=== PATIENT | male | born 1975 | race Caucasian/White ===

== ENCOUNTER 2016-11-03 17:10 | Emergency (ER) | payer SELFPAY ==
[~2016-11-03] VITALS: Ht 188 cm; Wt 85.0 kg
[2016-11-03 17:11] VITALS: BP 126/84; PULSE 80; RESP 15; TEMP 98.4; O2SAT 98
[2016-11-03] MEDS ORDERED: CYMB60CA PO (18:43)
[2016-11-03] MEDS ORDERED: METO25TA6 PO (18:43)
[2016-11-03] MEDS ORDERED: DEPA250T2 PO (18:43)
[2016-11-03] MEDS ORDERED: TRAZ100T6 PO (18:43)
--- NOTE | 2016-11-03 18:57 | PD ---
HPI . left lower tooth pain x 3 days Chief Complaint: Oral / Dental Pain or Problem Time Seen by Provider: 18:39 Travel History International Travel<30 days: No Contact w/Intl Traveler<30days: No Traveled to known affect area: No History of Present Illness HPI 41-year-old male who's had dental problems as whole life here with complaints of left lower tooth pain for the past 3 days. Patient says that his left lower wisdom tooth has been bothering him. He denies any fever or chills. He has not been able to establish with the dentist because he does not have dental insurance yet. PFSH Past Medical History Atrial Fibrillation: Yes Depression: Yes GERD: Yes Medical other: Yes (klinefelter's syndrome) Psychiatric: Yes (PTSD) Past Surgical History Cholecystectomy: Yes (07/2014) Oral Surgery: Yes Social History Alcohol Use: No Tobacco Use: Yes (1 ppd) Substance Use: No Allergies-Medications (Allergen,Severity, Reaction): Coded Allergies: acetaminophen (Verified Allergy, Unknown, 11/03/16) codeine (Verified Allergy, Unknown, 11/03/16) Reported Meds & Prescriptions Reported Meds & Active Scripts Active Clindamycin (Clindamycin HCl) 300 Mg Cap 300 Mg PO TID Reported Trazodone (Trazodone HCl) 100 Mg Tablet 100 Mg PO HS Cymbalta DR (Duloxetine HCl) 60 Mg Capdr 60 Mg PO DAILY Depakote DR (Divalproex Sodium) 250 Mg Tabdr 250 Mg PO BID Metoprolol Succinate ER 24 HR (Metoprolol Succinate) 25 Mg Tab 25 Mg PO DAILY Review of Systems General / Constitutional: No: Fever Eyes: No: Visual changes HENT: Positive: Dental Difficulties, No: Headaches Cardiovascular: No: Chest Pain or Discomfort Respiratory: No: Shortness of Breath Gastrointestinal: No: Abdominal Pain Genitourinary: No: Dysuria Musculoskeletal: No: Pain Skin: No Rash Neurologic: No: Weakness Psychiatric: No: Depression Endocrine: No: Polydipsia Hematologic/Lymphatic: No: Easy Bruising Physical Exam Narrative GENERAL: AAO x 3, no acute distress, Well-nourished, well-developed patient. SKIN: Warm and dry. No visible rashes or bruising. HEAD: Normocephalic and atraumatic. EYES: No scleral icterus. No injection or drainage. EOM intact, PERRLA ENT: No nasal drainage noted. Mucous membranes pink. Airway patent. #17 with early abscess, mild swelling of the gumline without drainable fluid collection, tooth is impacted , no facial edema NECK: Supple, trachea midline. No JVD. CARDIOVASCULAR: Regular rate and rhythm without murmurs, gallops, or rubs. RESPIRATORY: Breath sounds equal bilaterally. No accessory muscle use. No rhonchi or rales. GASTROINTESTINAL: visual inspection normal EXTREMITIES: No cyanosis or edema. BACK: No obvious deformity. NEURO: CN II-12 intact, PSYCH: AAO x 3, normal affect. Data Data Last Documented VS Vital Signs Date Time Temp Pulse Resp B/P (MAP) Pulse Ox O2 Delivery O2 Flow Rate FiO2 11/03/16 17:11 98.4 80 15 126/84 (98) 98 MDM Medical Decision Making Medical Screen Exam Complete: Yes Emergency Medical Condition: Yes Medical Record Reviewed: Yes Differential Diagnosis early oral abscess, dentalgia, impacted wisdom tooth Narrative Course 41 yr old male here with dental problems. He appears to have an early oral abscess. There is no drainable collection. I recommend antibiotics and f/u with dentist/oral surgeon. Patient verbalized understanding of instructions, questions were answered, and thanked me for their care. I advised them if their condition worsens, please return to the nearest emergency room for further care. Diagnosis Primary Impression: Dentalgia Additional Impression: Oral abscess Referrals: Dentist Patient Instructions: General Instructions Additional Instructions: See a dentist as soon as possible. Med/Other Pt SpecificInfo: Prescription(s) given Scripts Clindamycin (Clindamycin) 300 Mg Cap 300 MG PO TID for Infection, #21 CAP 0 Refills Prov: Shiva Hickman MD 11/03/16 Disposition: 01 DISCHARGE HOME Condition: Stable Megan Schafer Nov 03, 2016 18:57
[2016-11-03] MEDS ORDERED: CLIN1CAP6 PO (18:58)
== END 2016-11-03 20:50 | disposition home or self-care (01) ==
LOC: NEPD 17:10
DX: K12.2 Cellulitis and abscess of mouth (principal); I48.91 Unspecified atrial fibrillation; K21.9 Gastro-esophageal reflux disease without esophagitis
CPT/HCPCS: 99283